=== PATIENT | female | born 1970 ===

== ENCOUNTER 2016-12-04 10:51 | Day surgery (SDC) | payer OTHER ==
[2016-11-28 10:56] VITALS: BMI 24.2
[2016-12-04] MEDS ORDERED: Ciprofloxacin 400mg/200ml D5W 0 MG/0 ML BAG IVPB ONE (11:58)
[2016-12-04] MEDS ORDERED: Iohexol 240 (50 ml) ONE (12:14)
[2016-12-04] MEDS ORDERED: cefTRIAXone IV 1 gm in Dextros 50 ML IVPB ONE (12:14)
[2016-12-04] MEDS ORDERED: Lactated Ringer's 1,000 ML IV ONE ×2 (12:14→12:50)
[2016-12-04] MEDS ORDERED: Midazolam 2 MG/2 ML VIAL ONE (12:17)
[2016-12-04] MEDS ORDERED: Propofol 10 mg/ml Inj (20 ML) ONE ×2 (12:17→12:38)
[2016-12-04] MEDS ORDERED: HYDROmorphone 0.5 mg/0.5 ml ISec IVP PRN (12:53)
[2016-12-04 14:36] VITALS: RESP 18
--- NOTE | 2016-12-04 15:22 | RAD ---
PROCEDURE: HISTORY: Indwelling right ureteral stent - for removal COMPARISON: None TECHNIQUE: Total fluoroscopic time utilized during the procedure: 4 seconds. Total dose the 0.54737 mGy cm squared FINDINGS: Submitted images from the current procedure: 4 Please refer to the physician's notes performing the procedure. IMPRESSION: Less than 1 hour fluoroscopic time utilized during performance of the procedure
[2016-12-04 15:39] VITALS: BP 123/74; PULSE 76; TEMP 98; O2SAT 100
--- NOTE | 2016-12-04 22:54 | OP ---
PROCEDURE DATE: 12/04/2016 PREOPERATIVE DIAGNOSIS: Right uretero lithiasis with right ureteral stent. PROCEDURES: 1. Status post right ureteroscopic laser lithotripsy. 2. Cystoscopy, removal of right ureteral stent under fluoroscopic control. DESCRIPTION OF PROCEDURE: The patient was placed on the cystostomy table in the dorsal lithotomy position, prepped and draped in the usual sterile fashion with Betadine solution under IV sedation, anesthesia. A #22-[place] Storz cystoscope was inserted into the bladder. Bladder was examined in all four quadrants. There was a right ureteral stent jetting from the right ureteral orifice with no encrustation. Fluoroscopy showed two remaining stone fragments measuring slightly larger than 1 mm in width post right ureteroscopic laser lithotripsy. Next, using the rigid grasper, the right ureteral stent was grasped and removed under direct vision and fluoroscopic control. At the end of the procedure, fluoroscopy showed the two remaining distal stone fragments at the right UVJ. The patient should be able to pass the stone fragments on her own. At this time, she has had the right ureteral stent between 2 and 3 weeks postop. Plan for this patient will be to discharge the patient's home on Flomax 0.4 mg daily, Percocet 5 mg/325 mg p.o. q. 4-6 hours on a p.r.n. basis and Ceftin 500 mg b.i.d. for 5 days. The patient to see me in office followup in about 4 weeks. Simon Lopez MD MTDD
== END 2016-12-04 15:37 | disposition home or self-care (01) ==
LOC: C.SDS 10:51
PROVIDERS: ATTEND Urology
DX: N20.1 Calculus of ureter (principal)
CPT/HCPCS: 52310; J1170; J7120